=== PATIENT | female | born 1955 | race Caucasian/White ===

== ENCOUNTER 2020-10-20 07:23 | Day surgery (SDC) | payer BC ==
[2020-10-19 12:55] VITALS: BMI 26.6
[2020-10-20 07:51] VITALS: TEMP 97.8
[2020-10-20] MEDS ORDERED: PROPOFOL 20 ML ONE ×2 (08:11)
[2020-10-20 09:30] VITALS: BP 100/66; PULSE 70
== END 2020-10-20 09:15 | disposition home or self-care (01) ==
LOC: FASU-ENDO 07:23
PROVIDERS: ATTEND Internal Medicine Gastroenterology
PROC: 0DJD8ZZ Inspection of Lower Intestinal Tract, Via Natural or Artificial Opening Endoscopic (ICD-10-PCS; principal; 2020-10-20 08:25)
DX: Z12.11 Encounter for screening for malignant neoplasm of colon (principal)